=== PATIENT | female | born 1990 | race Two or more races ===

== ENCOUNTER 2020-07-15 16:05 | Emergency (ER) | payer MEDICAID ==
[~2020-07-15] VITALS: Ht 152.4 cm; Wt 84.1 kg
[~2020-07-15 16:05] MED LIST: MOTRIN600 MG PO; NEXIUM20 MG PO; PERCOCET 5/3251 TA1 PO
[2020-07-15 16:10] VITALS: Ht 152.4 cm; Wt 84.1 kg
[2020-07-15 16:38] LABS: BASOPHILS 0.3 % (0-2); EOSINOPHILS 0.6 % (0-7); HEMOGLOBIN 14.6 g/dL (12-16); IMMATURE GRANULOCYTES 0.3 % (0-5); LYMPHOCYTE ABS# 2.13 10x3/uL (1.18-3.74); LYMPHOCYTES 19.2 % (15-50); MCH 28.6 pg (26.0-34.0); MCHC 33.2 g/dL (31.0-37.0); MCV 86.3 fL (80.0-100.0); MEAN PLATELET VOLUME 11.1 fL (7.4-10.4); MONOCYTES 5.3 % (2-11); NEUTROPHIL ABS# 8.26 10x3/uL (1.56-6.13); NEUTROPHILS 74.3 % (40-80); WBC 11.1 10x3/uL (4.8-10.8)
[2020-07-15 16:48] LABS: APTT 27.5 SECONDS (22.8-39.4); INR 1.16 (0.85-1.17); PROTIME 13.7 SECONDS (11.6-15.0)
[2020-07-15 16:51] LABS: CALC OSMOLALITY 272 mosm/kg (275-300); CALCIUM 8.6 mg/dL (8.5-10.1); CARBON DIOXIDE 25.6 mmol/L (21.0-32.0); CHLORIDE - SERUM 103 mmol/L (98-107); CREATININE - SERUM 0.9 mg/dL (0.6-1.3); GLUCOSE 104 mg/dL (74-106); POTASSIUM - SERUM 3.4 mmol/L (3.5-5.1); SODIUM 137 mmol/L (136-145); UREA NITROGEN 10 mg/dL (7-18); eGFR NON AFRICAN AMERICAN 80 mL/min (90-120)
[2020-07-15 16:52] LABS: PLATELET COUNT 245 10x3/uL (130-400)
[2020-07-15 17:03] LABS: ALBUMIN 4.2 g/dL (3.4-5.0); ALKALINE PHOSPHATASE 65 U/L (30-120); ALT (SGPT) 23 U/L (10-68); BILIRUBIN - TOTAL 0.64 mg/dL (0.2-1.3)
[2020-07-15 17:08] LABS: HCG URINE NEGATIVE (NEGATIVE)
[2020-07-15 17:23] LABS: BILIRUBIN NEGATIVE (NEGATIVE); KETONE MODERATE mg/dL (NEGATIVE); NITRITE NEGATIVE (NEGATIVE); UROBILINOGEN NORMAL mg/dL (< 2); WHITE CELLS - URINE 0-5 HPF (0-4)
[2020-07-15 17:24] LABS: BACTERIA MODERATE HPF (NONE SEEN)
[2020-07-15] MEDS ORDERED: CYCLOBENZAPRINE10 MG PO (17:37)
[2020-07-15] MEDS ORDERED: ACETAMINOPHEN500 M1 PO (17:37)
[2020-07-15] MEDS ORDERED: IBUPROFEN800 MG PO (17:37)
[2020-07-15 18:25] VITALS: BP 111/58
== END 2020-07-15 18:18 | disposition home or self-care (01) ==
LOC: D.ER 16:05
PROVIDERS: Family Medicine
DX: R51.9 Headache, unspecified (principal); M54.2 Cervicalgia; M79.10 Myalgia, unspecified site; R42 Dizziness and giddiness